=== PATIENT | male | born 1965 | race Caucasian/White ===

== ENCOUNTER → 2016-11-24 | Outpatient (CLI) | payer MEDICARE | LOC: KOH-I 15:28 | DX: J18.0 Bronchopneumonia, unspecified organism (principal) | CPT/HCPCS: 71020 ==

== ENCOUNTER 2020-08-27 21:52 | Emergency (ER) | payer OTHER ==
[2020-08-27 23:35] LABS: HEMOGLOBIN 14.6 gm/dl (14.0-17.5); RED BLOOD COUNT 5.71 M/UL (4.20-5.50); WHITE BLOOD COUNT 12.4 K/UL (4.5-11.0)
[2020-08-28 00:09] LABS: BUN/CREATININE RATIO 17 (0-10)
[2020-08-28] MEDS ORDERED: IBUPROFEN600 MG PO (01:08)
[2020-08-28] MEDS ORDERED: CYCLOBENZAPRINE10 MG PO (01:08)
== END 2020-08-28 00:16 | disposition home or self-care (01) ==
LOC: ER1 21:52
PROVIDERS: Internal Medicine
DX: R07.89 Other chest pain (principal); E11.9 Type 2 diabetes mellitus without complications; I10 Essential (primary) hypertension; Z90.49 Acquired absence of other specified parts of digestive tract; Z90.89 Acquired absence of other organs
CPT/HCPCS: 71111; 80053; 81001; 85025; 96374; 99283; J1885

== ENCOUNTER 2020-09-20 09:45 | Inpatient (IN) | payer OTHER ==
[~2020-09-20] VITALS: Ht 180.3 cm; Wt 149.2 kg
[~2020-09-20 09:45] MED LIST: CYCLOBENZAPRINE10 MG PO; IBUPROFEN600 MG PO
[2020-09-20 11:05] LABS: HEMOGLOBIN 14.4 gm/dl (14.0-17.5); RED BLOOD COUNT 5.63 M/UL (4.20-5.50); WHITE BLOOD COUNT 5.6 K/UL (4.5-11.0)
[2020-09-20 11:44] LABS: BUN/CREATININE RATIO 10 (0-10)
[2020-09-20] MEDS ORDERED: NORVASC10 MG PO (13:43)
[2020-09-20] MEDS ORDERED: LIPITOR10 MG PO (13:44)
[2020-09-20] MEDS ORDERED: CHLORTHALIDONE50 MG PO (13:44)
[2020-09-20] MEDS ORDERED: COZAAR100 MG PO (13:45)
[2020-09-20] MEDS ORDERED: GLUCOTROL 10 MG10 MG PO (13:45)
[2020-09-20] MEDS ORDERED: TOPROL XL50 MG PO (13:45)
[2020-09-20] MEDS ORDERED: ZOLOFT50 MG PO (13:46)
[2020-09-20] MEDS ORDERED: NAPROXEN500 MG PO (13:46)
[2020-09-20] MEDS ORDERED: IMITREX100 MG PO (13:47)
[2020-09-20] MEDS ORDERED: GLUCOPHAGE1000 MG PO (13:47)
[2020-09-20] MEDS ORDERED: TRAZODONE HCL150 MG PO (13:48)
[2020-09-20] MEDS ORDERED: DEPO-TESTO200 MG/1 M IM (13:48)
[2020-09-20] MEDS ORDERED: LAMISIL TAB 25250 MG PO (13:49)
[2020-09-20] MEDS ORDERED: HYDRALAZINE HC100 MG PO (13:50)
[2020-09-20] MEDS ORDERED: DAILY VITE1 EACH PO (14:53)
[2020-09-20] MEDS ORDERED: SILDENAFIL20 MG PO (14:53)
[2020-09-20] MEDS ORDERED: PRESERVISION A1 EAC2 PO (14:54)
[2020-09-21 06:02] LABS: HEMOGLOBIN 13.4 gm/dl (14.0-17.5); RED BLOOD COUNT 5.29 M/UL (4.20-5.50); WHITE BLOOD COUNT 4.5 K/UL (4.5-11.0)
[2020-09-21 06:27] LABS: BUN/CREATININE RATIO 13 (0-10)
[2020-09-22 06:28] LABS: HEMOGLOBIN 13.6 gm/dl (14.0-17.5); RED BLOOD COUNT 5.42 M/UL (4.20-5.50)
[2020-09-22 06:30] LABS: WHITE BLOOD COUNT 6.2 K/UL (4.5-11.0)
[2020-09-22 06:52] LABS: BUN/CREATININE RATIO 15 (0-10)
[2020-09-23 06:33] LABS: HEMOGLOBIN 12.9 gm/dl (14.0-17.5); RED BLOOD COUNT 5.29 M/UL (4.20-5.50)
[2020-09-23 06:50] LABS: BUN/CREATININE RATIO 15 (0-10)
[2020-09-24 05:47] LABS: BUN/CREATININE RATIO 16 (0-10)
[2020-09-24] MEDS ORDERED: PROAIR HFA8.5 GM INH (11:47)
[2020-09-24] MEDS ORDERED: DECADRON6 MG PO (11:47)
[2020-09-24] MEDS ORDERED: CEFUROXIME500 MG PO (11:47)
== END 2020-09-24 13:29 | disposition home or self-care (01) | DRG 177 ==
LOC: ER1 09:45 → MED SURG 4 13:34 → CDU 13:34 → MED SURG 4 21:32
PROVIDERS: Emergency Medicine; Internal Medicine; ADMIT Internal Medicine
PROC: 8E0ZXY6 Isolation (ICD-10-PCS; principal; 2020-09-20)
PROC: XW033E5 Introduction of Remdesivir Anti-infective into Peripheral Vein, Percutaneous Approach, New Technology Group 5 (ICD-10-PCS; 2020-09-21)
PROC: XW13325 Transfusion of Convalescent Plasma (Nonautologous) into Peripheral Vein, Percutaneous Approach, New Technology Group 5 (ICD-10-PCS; 2020-09-21)
PROC: 3E0333Z Introduction of Anti-inflammatory into Peripheral Vein, Percutaneous Approach (ICD-10-PCS; 2020-09-21)
DX: U07.1 COVID-19 (principal); J12.82 Pneumonia due to coronavirus disease 2019; J96.01 Acute respiratory failure with hypoxia; J15.9 Unspecified bacterial pneumonia; E87.1 Hypo-osmolality and hyponatremia; I10 Essential (primary) hypertension; E87.6 Hypokalemia; E11.9 Type 2 diabetes mellitus without complications; E78.5 Hyperlipidemia, unspecified; R59.9 Enlarged lymph nodes, unspecified; K76.89 Other specified diseases of liver; G43.909 Migraine, unspecified, not intractable, without status migrainosus; G47.00 Insomnia, unspecified; M62.838 Other muscle spasm
CPT/HCPCS: 0241U; 36415; 36600; 71045; 80048; 80053; 81001; 82550; 82553; 82803; 82962; 83605; 83690; 83735; 84132; 84484; 85025; 85027; 85610; 85730; 86900; 86901; 86927; 93005; 94640; 94664; 94760; 96374; 99285; J0456; J0696; J1100; J1650; J1885; J7030; J7050; Q9967